=== PATIENT | male | born 1950 | race Asian ===

== ENCOUNTER → 2016-04-23 | Outpatient (CLI) | payer MEDICARE ==
[~2016-04-23] MED LIST: AMLO10TA4 PO; AMLO10TA57 PO; ASPI81TA84 PO; ATEN50TA PO; CLOP75TA19 PO; ERGO400C PO; ESCI10TA47 PO; FISH1CAP29 PO; INDA1.2516 PO; LISI10TA7 PO; METF-200 PO; PRAV40TA46 PO
--- NOTE | 2016-04-23 10:42 | DI ---
Indication: ITS.REASON: I10 HYPERTENSION; R31.9 HEMATURIA US RENAL: Comparison: None Technique: Real-time and color flow imaging provided Findings: Right kidney: Measures 11.8 x 5.2 x 5.9 cm. No focal masses, obstructive uropathy, echogenic shadowing or other acute findings noted. Left kidney is measuring 1.9 x 5.9 x 6.5 cm. No focal masses, obstructive uropathy, echogenic shadowing or other acute findings appreciated. Incidentally noted is focal calcification in the gallbladder wall with some associated sludge within the gallbladder. Impression: 1. Unremarkable appearing kidneys. 2. Potential calcification the gallbladder wall with sludge. .
== END ==
LOC: IMA 07:42
PROVIDERS: ATTEND Specialist
DX: I10 Essential (primary) hypertension (principal); R31.9 Hematuria, unspecified; K82.8 Other specified diseases of gallbladder

== ENCOUNTER → 2016-06-16 | Outpatient (CLI) | payer MEDICARE | LOC: LAB 09:37 | PROVIDERS: ATTEND Internal Medicine | DX: I10 Essential (primary) hypertension (principal); R20.2 Paresthesia of skin; R22.42 Localized swelling, mass and lump, left lower limb; R80.8 Other proteinuria | CPT/HCPCS: 36415; 85379 ==